=== PATIENT | female | born 1975 | race Caucasian/White ===

== ENCOUNTER 2016-08-10 14:01 | Observation (INO) | payer SELFPAY ==
[2016-08-10] MEDS ORDERED: ZOFRAN INJ 4 MG VIAL 16 MG, ATIVAN INJ 2 MG VIAL 1 MG, DECADRON INJ 10 MG in NS 50 ML I... IV PRN (15:17)
[2016-08-10] MEDS ORDERED: TORADOL 15 MG VIAL IVP PRN (15:17)
[2016-08-10 15:38] VITALS: BMI 27.6
[2016-08-10 15:42] LABS: BASOPHILS % (AUTO) 0.2 % (0.2-1.0); EOSINOPHILS # (AUTO) 0.1 x10^3/uL (0.0-0.2); EOSINOPHILS % (AUTO) 0.8 % (0.9-2.9); HEMATOCRIT 35.1 % (36.0-47.0); HEMOGLOBIN 11.6 g/dL (12.0-16.0); LYMPHOCYTES # (AUTO) 2.6 X10^3/uL (1.3-2.9); LYMPHOCYTES % (AUTO) 28.7 % (21.0-51.0); MEAN CORPUSCULAR VOLUME 84.7 fL (80.0-100.0); MEAN PLATELET VOLUME 8.7 fL (7.4-11.0); MONOCYTES # (AUTO) 0.7 x10^3/uL (0.3-0.8); MONOCYTES % (AUTO) 7.9 % (0.0-13.0); NEUTROPHILS # (AUTO) 5.7 x10^3/uL (2.2-4.8); NEUTROPHILS % (AUTO) 62.4 % (42.0-75.0); PLATELET COUNT 237 X10^3/uL (150.0-450.0); RED BLOOD COUNT 4.15 X10^6/uL (3.5-5.4); RED CELL DISTRIBUTION WIDTH 13.2 % (11.6-16.5); WHITE BLOOD COUNT 9.2 X10^3/uL (3.6-10.0)
[2016-08-10 16:04] LABS: ALANINE AMINOTRANSFERASE 23 Units/L (12-78); ALBUMIN 3.1 g/dL (3.4-5.0); ALKALINE PHOSPHATASE 95 Units/L (46-116); AMYLASE 46 Units/L (25-115); ASPARTATE AMINO TRANSFERASE 14 Units/L (15-37); BLOOD UREA NITROGEN 11 mg/dL (7-18); CALCIUM 8.8 mg/dL (8.5-10.1); CARBON DIOXIDE 26.4 mmol/L (21-32); CHLORIDE 106 mmol/L (98-107); COR CA(FOR HYPOALB) 9.5 mg/dL (8.5-10.1); CREATININE 0.78 mg/dL (0.55-1.02); GLUCOSE 98 mg/dL (65-99); SODIUM 141 mmol/L (136-145); TOTAL PROTEIN 7.2 g/dL (6.4-8.2); eGFR BLACK RACES > 60 (>60); eGFR NON BLACK RACES > 60 (>60)
[2016-08-10] MEDS: NS 1000 ML 1,000 ML IV SCH (16:18)
--- NOTE | 2016-08-10 17:30 | DR.H&P ---
H&P - History & Physical for Day of: H&P Date: 08/10/16 - Chief Complaint Chief Complaint: RIGHT LOWER ABDOMINAL PAIN - Allergies Allergies/Adverse Reactions: Allergies Allergy/AdvReac Type Severity Reaction Status Date / Time No Known Drug Allergy Allergy Verified 08/10/16 15:10 - History of Present Illness History of Present Illness: PT IS 40 [address] ADMITTED FROM DR CHUNG OFFICE AFTER PRESENTING WITH CO RIGHT LOWER ABDOMINAL PAIN RADIATES TO [facility]. PT WAS SEEN IN ER AND HAD CT, TOLD SHE HAD KIDNEY STONE AND POSSIBLE APPENDECTOMY, PT ADVISED TO FOLLOW UP WITH PCP TODAY IF NOT IMPROVED. PT STATES SHE CANNOT GET RELIEF FROM PAIN, UNABLE TO EAT. FEELS FEVER AND WEAK. PLAN TO ADMIT FOR CT ABD PELVIS R/O APPENDICITIS. PAIN CONTROL AND IV ATBX THERAPY. WILL OBTAIN ADMISSION LABS AND START ON ZOSYN IV. - Past Medical History Past Medical History: Anxiety, Hyperthyroidism - Past Surgical History Surgical History: WELLNESS SPECIALIST Surgery - Family History Family Medical History: Diabetes Mellitus, Hypertension - Social History Does patient currently use any type of tobacco product: No Have you used tobacco products in the last 12 months: No Type of Tobacco Use: None Does any household member use tobacco: No Alcohol Use: None Drug Use: None - Medications Home Medications: Chlordiazepoxide HCl [LIBRIUM CAP 10 MG *] 10 mg PO TID PRN 08/10/16 [History Confirmed 08/10/16] Fluoxetine HCl [FLUOXETINE 10 MG *] 10 mg PO BID 08/10/16 [History Confirmed ] Methimazole [Tapazole] 10 mg PO BID 08/10/16 [History Confirmed 08/10/16] - Review of Systems Constitutional: Fever, Weakness Eyes: No Symptoms Reported ENT: No Symptoms Reported Respiratory: No Symptoms Reported Cardiovascular: No Symptoms Reported Gastrointestinal: Nausea, Vomiting, Abdominal Pain Genitourinary: No Symptoms Reported Musculoskeletal: Back Pain Skin: No Symptoms Reported Neurological: No Symptoms Reported - Physical Exam Vital Signs: Temperature 98.3 F Pulse Rate [Left Brachial] 101 Respiratory Rate 18 Blood Pressure [Right Arm] 114/66 Blood Pressure [Left Arm] 114/66 O2 Sat by Pulse Oximetry 96 Oriented: Normal Eyes: Normal Ear: Normal Nose: Normal Throat: Normal Respiratory: Clear Throughout Cardiovascular: Normal : Normal Auscultation: Bowel Sounds: Normal Tenderness: RLQ Skin: Normal Musculoskeletal: Normal Psychiatric: Normal, Anxiety Affect: Anxious Speech Pattern: Clear, Appropriate - Assessment/Plan (1) Abdominal pain, acute, right lower quadrant Status: Acute Plan: ADMIT. ADMISSION LABS, CBC CMP UA, AMYLASE AND LIPASE. IV ZOSYN, IV HYDRATION PAIN AND NAUSEA CONTROL (2) Renal colic Status: Acute (3) Nausea & vomiting Qualifiers: Vomiting type: V Vomiting Intractability: V Status: Acute (4) Anxiety Status: Acute
[2016-08-10] MEDS ORDERED: LIBRIUM PO PRN (17:32)
[2016-08-10 17:37] LABS: BILIRUBIN,URINE NEGATIVE (NEGATIVE); BLOOD/HEMOGLOBIN,URINE 2+ (NEGATIVE); GLUCOSE, URINE 1+ (NEGATIVE); KETONES,URINE NEGATIVE (NEGATIVE); LEUKOCYTE ESTERASE ,URINE NEGATIVE (NEGATIVE); NITRITES,URINE NEGATIVE (NEGATIVE); PH,URINE 6.5 (5.0 - 8.0); PROTEIN,URINE NEGATIVE (NEGATIVE); UROBILINOGEN,URINE 1+ (NORMAL)
[2016-08-10 17:48] LABS: APPEARANCE,URINE CLEAR (CLEAR); COLOR,URINE YELLOW (YELLOW); RBC,URINE 0-2 /HPF (NEGATIVE)
[2016-08-10 17:49] LABS: BACTERIA,URINE TRACE /HPF (NEGATIVE); MUCUS,URINE FEW /HPF (NEGATIVE); SQUAMOUS EPITHELIAL CELL,UR NUMEROUS /HPF (NEGATIVE)
[2016-08-10] MEDS ORDERED: NS 100 ML IV 100 ML IV ONE (18:34)
--- NOTE | 2016-08-10 19:23 | CT ---
CT abdomen and pelvis with contrast Indication: Right lower quadrant pain and fever. Technique: Helical images through the abdomen and pelvis after IV contrast. Oral contrast also prese nt. Findings: Review of bone windows shows no osseous abnormality. Limited images through lower chest sh ow no acute abnormality. Abdomen: Scattered hypodensities in the liver are compatible with cysts. The spleen, gallbladder, pa ncreas, adrenal glands, stomach and small bowel are normal. The appendix is normal. No acute colonic abnormality seen. Vasculature is normal. The kidneys are relatively normal without hydroureteroneph rosis. Few right renal cyst noted. Nonobstructing right interpolar 7 mm stone suspected. Contrast enters the colon without obstruction. No acute colonic abnormality seen. Pelvis: Urinary bladder and rectum are normal. Uterus and adnexa show no acute abnormality. Trace fr ee fluid seen in the pelvis. Impression: 1. No acute abnormality to explain the patient's pain. Normal appendix. 2. Nonobstructing right interpolar renal stone. 3. Liver and right renal cysts. 4. Small free fluid in the pelvis, likely physiologic. Correlate clinically for pelvic source of pat ient's pain. Reported By:
[2016-08-10] MEDS ORDERED: ZOSYN VIAL 3.375 GM IV ONE (19:49)
[2016-08-10] MEDS ORDERED: TAPAZOLE ONE (19:50)
[2016-08-10] MEDS ORDERED: NS 100 ML IV + SPIKE MINIBAG* 100 ML IV ONE (19:50)
[2016-08-10] MEDS: PROzac PO SCH (20:05)
[2016-08-10] MEDS: TAPAZOLE PO SCH (20:05)
[2016-08-10] MEDS ORDERED: NS 250 ML IV 250 ML IV ONE (20:16)
[2016-08-10] MEDS ORDERED: MILK OF MAGNESIA PO SCH (21:00)
[2016-08-10] MEDS ORDERED: COLACE CAP 100 MG PO SCH (21:00)
[2016-08-10] MEDS: ZOSYN VIAL 3.375 GM IV SCH (21:12)
[2016-08-10] MEDS: TYLENOL 325 MG TAB PO PRN (21:37)
[2016-08-11] MEDS: NS 1000 ML 1,000 ML IV SCH ×2 (01:52→08:06)
[2016-08-11] MEDS ORDERED: NS 100 ML IV + SPIKE MINIBAG* 100 ML IV ONE (05:34)
[2016-08-11] MEDS: ZOSYN VIAL 3.375 GM IV SCH (05:53)
[2016-08-11 06:24] LABS: BASOPHILS % (AUTO) 0.3 % (0.2-1.0); EOSINOPHILS # (AUTO) 0.1 x10^3/uL (0.0-0.2); EOSINOPHILS % (AUTO) 1.7 % (0.9-2.9); HEMATOCRIT 33.8 % (36.0-47.0); HEMOGLOBIN 11.3 g/dL (12.0-16.0); LYMPHOCYTES # (AUTO) 2.8 X10^3/uL (1.3-2.9); LYMPHOCYTES % (AUTO) 34.6 % (21.0-51.0); MEAN CORPUSCULAR HEMOGLOBIN 28.5 pg (27.0-34.0); MEAN CORPUSCULAR HGB CONC 33.3 g/dL (33.0-35.0); MEAN CORPUSCULAR VOLUME 85.5 fL (80.0-100.0); MEAN PLATELET VOLUME 9.4 fL (7.4-11.0); MONOCYTES # (AUTO) 0.7 x10^3/uL (0.3-0.8); MONOCYTES % (AUTO) 8.5 % (0.0-13.0); NEUTROPHILS # (AUTO) 4.5 x10^3/uL (2.2-4.8); NEUTROPHILS % (AUTO) 54.9 % (42.0-75.0); PLATELET COUNT 233 X10^3/uL (150.0-450.0); RED BLOOD COUNT 3.96 X10^6/uL (3.5-5.4); RED CELL DISTRIBUTION WIDTH 13.2 % (11.6-16.5); WHITE BLOOD COUNT 8.2 X10^3/uL (3.6-10.0)
[2016-08-11 06:39] LABS: ALANINE AMINOTRANSFERASE 22 Units/L (12-78); ALBUMIN 2.9 g/dL (3.4-5.0); ALKALINE PHOSPHATASE 85 Units/L (46-116); ASPARTATE AMINO TRANSFERASE 14 Units/L (15-37); BLOOD UREA NITROGEN 9 mg/dL (7-18); CALCIUM 8.5 mg/dL (8.5-10.1); CARBON DIOXIDE 24.7 mmol/L (21-32); CHLORIDE 106 mmol/L (98-107); COR CA(FOR HYPOALB) 9.4 mg/dL (8.5-10.1); CREATININE 0.84 mg/dL (0.55-1.02); GLUCOSE 86 mg/dL (65-99); SODIUM 141 mmol/L (136-145); TOTAL PROTEIN 6.9 g/dL (6.4-8.2); eGFR BLACK RACES > 60 (>60); eGFR NON BLACK RACES > 60 (>60)
[2016-08-11] MEDS ORDERED: TAPAZOLE ONE (07:08)
[2016-08-11] MEDS: PROzac PO SCH (08:06)
[2016-08-11] MEDS: TAPAZOLE PO SCH (08:08)
[2016-08-11] MEDS: TYLENOL 325 MG TAB PO PRN (08:08)
[2016-08-11 08:21] VITALS: BP 96/60
[2016-08-11] MEDS ORDERED: NORCO 10/325 TAB PO ONE (08:25)
[2016-08-11] MEDS ORDERED: MOTRIN TAB 800 MG PO PRN (08:25)
--- NOTE | 2016-08-11 12:55 | PCM.DCPLAN ---
Discharge Summary - Admission Date Date of Admission: 08/10/16 - Discharge Date Discharge Date: 08/11/16 - Admission Diagnoses (1) Abdominal pain, acute, right lower quadrant Status: Acute (2) Renal colic Status: Acute (3) Nausea & vomiting Status: Acute (4) Anxiety Status: Acute - Discharge Diagnoses Discharge Diagnosis: same as admission - Discharge Medications Discharge Medications: Chlordiazepoxide HCl [LIBRIUM CAP 10 MG *] 10 mg PO TID PRN 08/10/16 [History] Methimazole [Tapazole] 10 mg PO BID 08/10/16 [History] Fluoxetine HCl [Prozac cap 40 mg] 20 mg PO BID #60 cap 08/11/16 [Rx] Ibuprofen [MOTRIN TAB 800 MG *] 800 mg PO Q8H PRN #90 tab 08/11/16 [Rx] - Hospital Course Vital Signs: Temperature 97.9 F Pulse Rate [Left Brachial] 88 Respiratory Rate 17 Blood Pressure [Right Arm] 96/60 Blood Pressure [Left Arm] 87/52 O2 Sat by Pulse Oximetry 96 Latest Lab Results: Laboratory Last Values WBC 8.2 X10^3/uL (3.6-10.0) 08/11/16 03:11 RBC 3.96 X10^6/uL (3.5-5.4) 08/11/16 03:11 Hgb 11.3 g/dL (12.0-16.0) L 08/11/16 03:11 Hct 33.8 % (36.0-47.0) L 08/11/16 03:11 MCV 85.5 fL (80.0-100.0) 08/11/16 03:11 MCH 28.5 pg (27.0-34.0) 08/11/16 03:11 MCHC 33.3 g/dL (33.0-35.0) 08/11/16 03:11 RDW 13.2 % (11.6-16.5) 08/11/16 03:11 Plt Count 233 X10^3/uL (150.0-450.0) 08/11/16 03:11 MPV 9.4 fL (7.4-11.0) 08/11/16 03:11 Neut % 54.9 % (42.0-75.0) 08/11/16 03:11 Lymph % 34.6 % (21.0-51.0) 08/11/16 03:11 Kay % 8.5 % (0.0-13.0) 08/11/16 03:11 Eos % 1.7 % (0.9-2.9) 08/11/16 03:11 Baso % 0.3 % (0.2-1.0) 08/11/16 03:11 Neut # 4.5 x10^3/uL (2.2-4.8) 08/11/16 03:11 Lymph # 2.8 X10^3/uL (1.3-2.9) 08/11/16 03:11 Kay # 0.7 x10^3/uL (0.3-0.8) 08/11/16 03:11 Eos # 0.1 x10^3/uL (0.0-0.2) 08/11/16 03:11 Baso # 0.0 X10^3/uL (0.0-0.1) 08/11/16 03:11 Absolute Nucleated RBC 0.0 /100WBC 08/11/16 03:11 Sodium 141 mmol/L (136-145) 08/11/16 03:11 Corrected Sodium TNP 08/11/16 03:11 Potassium 3.5 mmol/L (3.5-5.1) 08/11/16 03:11 Chloride 106 mmol/L (98-107) 08/11/16 03:11 Carbon Dioxide 24.7 mmol/L (21-32) 08/11/16 03:11 BUN 9 mg/dL (7-18) 08/11/16 03:11 Creatinine 0.84 mg/dL (0.55-1.02) 08/11/16 03:11 Est GFR (MDRD) Af Amer > 60 (>60) 08/11/16 03:11 Est GFR (MDRD) Non-Af > 60 (>60) 08/11/16 03:11 Glucose 86 mg/dL (65-99) 08/11/16 03:11 Calcium 8.5 mg/dL (8.5-10.1) 08/11/16 03:11 Corrected Calcium 9.4 mg/dL (8.5-10.1) 08/11/16 03:11 Total Bilirubin 0.40 mg/dL (0.2-1.0) 08/11/16 03:11 AST 14 Units/L (15-37) L 08/11/16 03:11 ALT 22 Units/L (12-78) 08/11/16 03:11 Alkaline Phosphatase 85 Units/L (46-116) 08/11/16 03:11 Total Protein 6.9 g/dL (6.4-8.2) 08/11/16 03:11 Albumin 2.9 g/dL (3.4-5.0) L 08/11/16 03:11 Globulin 4.0 g/dL (2.5-4.5) 08/11/16 03:11 Albumin/Globulin Ratio 0.7 Ratio (1.1-2.1) L 08/11/16 03:11 Amylase 46 Units/L (25-115) 08/10/16 15:29 Lipase 72 Units/L (73-393) L 08/10/16 15:29 Specimen Type Clean catch urine 08/10/16 17:13 Urine Color Yellow (YELLOW) 08/10/16 17:13 Urine Appearance Clear (CLEAR) 08/10/16 17:13 Urine pH 6.5 (5.0 - 8.0) 08/10/16 17:13 Ur Specific [place] 1.015 (1.000-1.030) 08/10/16 17:13 Urine Protein Negative (NEGATIVE) 08/10/16 17:13 Urine Glucose (UA) 1+ (NEGATIVE) 08/10/16 17:13 Urine Ketones Negative (NEGATIVE) 08/10/16 17:13 Urine Occult Blood 2+ (NEGATIVE) 08/10/16 17:13 Urine Nitrite Negative (NEGATIVE) 08/10/16 17:13 Urine Bilirubin Negative (NEGATIVE) 08/10/16 17:13 Urine Urobilinogen 1+ (NORMAL) 08/10/16 17:13 Ur Leukocyte Esterase Negative (NEGATIVE) 08/10/16 17:13 Urine RBC 0-2 /HPF (NEGATIVE) 08/10/16 17:13 Urine WBC None seen /HPF (NEGATIVE) 08/10/16 17:13 Ur Squamous Epith Cells Numerous /HPF (NEGATIVE) 08/10/16 17:13 Urine Bacteria Trace /HPF (NEGATIVE) 08/10/16 17:13 Urine Mucus Few /HPF (NEGATIVE) 08/10/16 17:13 Ur Culture Indicated? No/not indicated 08/10/16 17:13 Stool Description Brown,formed,200g 08/10/16 17:13 Stl Occult Blood (IFOB) Negative (NEGATIVE) 08/10/16 17:13 Hospital Course: patient is a 40-year-old white female who was a direct admit from Dr. Alexandre' s office after presenting with complaints of right lower quadrant pain. Patient was seen earlier in the week in the emergency room at [facility] in [facility] and was diagnosed with renal colic. Patient was also informed she could have early appendicitis and was instructed to follow up for primary care in 24 hours if pain continued or persistent. Patient states pain is right lower quadrant and radiates around to low back. Patient states she has been able to eat due to pain. Patient denies any vomiting or diarrhea. Patient was admitted to rule out acute appendicitis patient had a CT scan of her abdomen and pelvis with IV contrast which was negative for acute appendicitis. Patient had fluid in the pelvic cavity and has a history of ovarian CS. Patient CBC and CMP were stable on admission. Patient felt much improved this a.m. after hydration. Patient did receive IV Zosyn while inpatient. Patient instructed to increase by mouth fluids and take ibuprofen 800 every 8 hours and follow up with her [facility]ICE [facility]IDENT [facility] in one week. Patient verbalized understanding. Patient felt much improved and was ready to go home. Patient was discharged home by private vehicle and was improved and stable on discharge. - Discharge Plan Disposition: 01 HOME, SELF-CARE Condition: Stable Prescriptions: Fluoxetine HCl [Prozac cap 40 mg] 20 mg PO BID #60 cap Ibuprofen [MOTRIN TAB 800 MG *] 800 mg PO Q8H PRN #90 tab PRN Reason: Pain/Inflammation - Follow ups/Referrals Follow ups/Referrals: DAVID SERNA [Primary Care Provider] - 08/18/16 2:15 pm Ivan Rico [STAFF PHYSICIAN] - 08/12/16 2:15 pm - Instructions Instructions: Depression, Adult, Renal Colic, [id number], Ibuprofen tablets and capsules, Kidney Stones, [id number], Nausea and Vomiting, Adult, Easy-to- Read, Abdominal Pain, Adult, [id number], Fluoxetine capsules or tablets (PMDD indication) Additional Instructions: follow up with ob/gyb motrin 800mg po q 8 hrs increase po fluids rest, resume home meds Forms: Patient Portal
== END 2016-08-11 10:40 | disposition home or self-care (01) ==
LOC: MED/SURG 14:01 → UNDOADMOB 14:01 → MED/SURG 14:43
PROVIDERS: ADMIT Internal Medicine; ATTEND Internal Medicine
DX: R10.31 Right lower quadrant pain (principal); R11.2 Nausea with vomiting, unspecified; F41.8 Other specified anxiety disorders; N23 Unspecified renal colic; N20.0 Calculus of kidney; N28.1 Cyst of kidney, acquired
CPT/HCPCS: 36415; 74177; 80053; 81001; 82150; 82270; 83690; 85025; A4222; G0378; J2543

== ENCOUNTER → 2017-06-13 | Outpatient (CLI) | payer OTHER ==
--- NOTE | 2017-06-14 06:20 | RAD ---
HISTORY: Right upper quadrant pain Study: KUB Comparison: None Findings: Abdominal gas pattern is unremarkable. There is no evidence for bowel obstruction, abnormal masses or abnormal calcifications. The regional skeleton is intact. IMPRESSION: Unremarkable KUB Reported By:
--- NOTE | 2017-06-14 06:22 | RAD ---
HISTORY: Right side pain Study: T spine AP, lateral, swimmer's Comparison: None Findings: The alignment is normal. The vertebral bodies are of average height. The disc spaces are preserved. T he pedicles are intact. The paraspinous soft tissues are normal. IMPRESSION: No significant abnormality identified Reported By:
--- NOTE | 2017-06-14 06:23 | RAD ---
HISTORY: Right side back pain Study: Lumbar spine AP, lateral, spot Comparison: None Findings: The alignment is normal. The vertebral bodies are of average height. The disc spaces are preserved. T he pedicles are intact. The SI joints are normal. The facet joints are normal. IMPRESSION: No significant abnormality identified Reported By:
== END ==
LOC: RAD 17:30
PROVIDERS: ATTEND Internal Medicine
DX: M54.6 Pain in thoracic spine (principal); M54.5 Low back pain; R10.84 Generalized abdominal pain
CPT/HCPCS: 72072; 72100; 74018

== ENCOUNTER 2017-09-15 17:16 | Observation (INO) ==
[2017-09-15] MEDS ORDERED: PROTONIX INJ 40 MG VIAL IVP ONE (17:49)
--- NOTE | 2017-09-15 18:16 | DR.H&P ---
H&P - History & Physical for Day of: H&P Date: 09/15/17 - Chief Complaint Chief Complaint: RIGHT SIDE ABDOMINAL PAIN, NAUSEA, VOMITING. "CANNOT EAT" - History of Present Illness History of Present Illness: 42 WF DIRECT ADMIT FROM DR SANTOS OFFICE WITH CO RIGHT SIDE ABDOMINAL PAIN WITH N/V FOOD INTOLERANCE. PT WAS SEEN IN ER 7/ DX WITH GALLSTONES. PT HAS PMH OF HYPERTHYROIDISM, JAMAL. PT GIVEN TORADOL 60MGIM IN OFFICE FOR ACUTE PAIN WITHOUT RELIEF. PT HAD BEEN TAKING PPI'S PAIN AND NAUSEA MEDS FROM ER WITHOUT IMPROVEMENT. - Past Medical History Past Medical History: Anxiety, GERD, Hyperthyroidism - Past Surgical History Surgical History: PROCUREMENT BUYER Surgery - Family History Family Medical History: Diabetes Mellitus, Hypertension - Social History Does patient currently use any type of tobacco product: No Have you used tobacco products in the last 12 months: No Type of Tobacco Use: None Does any household member use tobacco: No Alcohol Use: None Drug Use: None - Medications Home Medications: No Known Drug Allergies Allergy (Verified 02/10/17 19:07) - Review of Systems Constitutional: Fever Eyes: No Symptoms Reported ENT: No Symptoms Reported Respiratory: No Symptoms Reported Cardiovascular: Palpitations Gastrointestinal: Nausea, Vomiting, Abdominal Pain, Other (GAS BLOATING, FOOD INTOLERANCE) Genitourinary: No Symptoms Reported Musculoskeletal: Back Pain (RIGHT SIDE PAIN) Skin: No Symptoms Reported Neurological: No Symptoms Reported - Physical Exam Vital Signs: Blood Pressure [Right Arm] 96/60 Blood Pressure [Left Arm] 115/66 Blood Pressure 115/66 Oriented: Normal Eyes: Normal Ear: Normal Nose: Normal Throat: Normal Cardiovascular: Normal : Normal Auscultation: Bowel Sounds: Increased Palpation: Other (DISTENDED) Tenderness: RUQ, RLQ, Epigastric Skin: Normal Musculoskeletal: Right, Back:Thoracic Psychiatric: Anxiety Mood Description: Anxious Affect: Anxious Speech Pattern: Clear, Appropriate - Assessment/Plan (1) Abdominal pain, acute, right upper quadrant Status: Acute Plan: ADMIT, KUB, PROTONIC. CBC CMP UA, AMYLASE LIPASE. PAIN CONTROL, NAUSEA CONTROL. AM LABS, CONSULT DR HOWELL, NPO AFTER MIDNIGHT (2) Nausea & vomiting Status: Acute (3) Cholelithiasis Qualifiers: Cholelithiasis location: gallbladder Cholecystitis presence: without cholecystitis Biliary obstruction: without biliary obstruction Qualified Code(s): K80.20 - Calculus of gallbladder without cholecystitis without obstruction Status: Acute (4) Hyperthyroidism Status: Acute Plan: CONTINUE METHIMAZOLE - Allergies Allergies/Adverse Reactions: Allergies Allergy/AdvReac Type Severity Reaction Status Date / Time No Known Drug Allergies Allergy Verified 02/10/17 19:07
[2017-09-15 18:18] VITALS: BMI 32.3
[2017-09-15] MEDS ORDERED: LIBRIUM PO PRN (18:20)
[2017-09-15] MEDS: NS 1000 ML 1,000 ML IV SCH (18:24)
[2017-09-15 18:27] LABS: BASOPHILS % (AUTO) 0.7 % (0.2-1.0); EOSINOPHILS # (AUTO) 0.1 x10^3/uL (0.0-0.2); EOSINOPHILS % (AUTO) 0.8 % (0.9-2.9); HEMATOCRIT 35.2 % (36.0-47.0); HEMOGLOBIN 11.4 g/dL (12.0-16.0); LYMPHOCYTES # (AUTO) 2.9 X10^3/uL (1.3-2.9); LYMPHOCYTES % (AUTO) 39.3 % (21.0-51.0); MEAN CORPUSCULAR HEMOGLOBIN 25.8 pg (27.0-34.0); MEAN CORPUSCULAR HGB CONC 32.4 g/dL (33.0-35.0); MEAN CORPUSCULAR VOLUME 79.8 fL (80.0-100.0); MEAN PLATELET VOLUME 9.3 fL (7.4-11.0); MONOCYTES # (AUTO) 0.9 x10^3/uL (0.3-0.8); MONOCYTES % (AUTO) 12.1 % (0.0-13.0); NEUTROPHILS # (AUTO) 3.5 x10^3/uL (2.2-4.8); NEUTROPHILS % (AUTO) 47.1 % (42.0-75.0); PLATELET COUNT 300 X10^3/uL (150.0-450.0); RED BLOOD COUNT 4.42 X10^6/uL (3.5-5.4); RED CELL DISTRIBUTION WIDTH 15.9 % (11.6-16.5); WHITE BLOOD COUNT 7.4 X10^3/uL (3.6-10.0)
[2017-09-15 18:46] LABS: TSH (3RD GENERATION) 1.8 uIU/mL (0.358-3.74)
[2017-09-15 18:51] LABS: PLATELET MORPHOLOGY COMMENT NORMAL (NORMAL)
[2017-09-15 18:52] LABS: ALANINE AMINOTRANSFERASE 24 Units/L (12-78); ALBUMIN 3.7 g/dL (3.4-5.0); ALKALINE PHOSPHATASE 110 Units/L (46-116); ASPARTATE AMINO TRANSFERASE 19 Units/L (15-37); BLOOD UREA NITROGEN 12 mg/dL (7-18); CALCIUM 8.5 mg/dL (8.5-10.1); CARBON DIOXIDE 23.3 mmol/L (21-32); CHLORIDE 104 mmol/L (98-107); CREATININE 0.86 mg/dL (0.55-1.02); FREE T4 (FREE THYROXINE) 0.75 ng/dL (0.76-1.46); SODIUM 138 mmol/L (136-145); TOTAL PROTEIN 8.2 g/dL (6.4-8.2); eGFR NON BLACK RACES > 60 (>60)
--- NOTE | 2017-09-15 19:16 | RAD ---
HISTORY: Abdominal pain, distention Study: KUB Comparison: None Findings: The abdominal gas pattern is nonspecific and nonobstructive. No abnormal masses or abnormal calcifica tions are identified. There is a moderately large amount of stool present throughout the colon. IMPRESSION: No acute findings Constipation Reported By:
[2017-09-15] MEDS ORDERED: TAPAZOLE ONE (19:26)
[2017-09-15] MEDS: TAPAZOLE PO SCH (20:37)
[2017-09-15] MEDS ORDERED: PROzac PO SCH (21:00)
[2017-09-15 21:38] LABS: BILIRUBIN,URINE NEGATIVE (NEGATIVE); BLOOD/HEMOGLOBIN,URINE NEGATIVE (NEGATIVE); GLUCOSE, URINE NEGATIVE (NEGATIVE); KETONES,URINE NEGATIVE (NEGATIVE); LEUKOCYTE ESTERASE ,URINE NEGATIVE (NEGATIVE); NITRITES,URINE NEGATIVE (NEGATIVE); PROTEIN,URINE NEGATIVE (NEGATIVE); UROBILINOGEN,URINE NORMAL (NORMAL)
[2017-09-15 21:44] LABS: APPEARANCE,URINE CLEAR (CLEAR); COLOR,URINE YELLOW (YELLOW)
[2017-09-16 05:42] LABS: BASOPHILS % (AUTO) 0.2 % (0.2-1.0); EOSINOPHILS # (AUTO) 0.1 x10^3/uL (0.0-0.2); EOSINOPHILS % (AUTO) 1.1 % (0.9-2.9); HEMATOCRIT 32.1 % (36.0-47.0); HEMOGLOBIN 10.4 g/dL (12.0-16.0); LYMPHOCYTES # (AUTO) 2.3 X10^3/uL (1.3-2.9); LYMPHOCYTES % (AUTO) 35.1 % (21.0-51.0); MEAN CORPUSCULAR HEMOGLOBIN 25.9 pg (27.0-34.0); MEAN CORPUSCULAR HGB CONC 32.5 g/dL (33.0-35.0); MEAN CORPUSCULAR VOLUME 79.6 fL (80.0-100.0); MEAN PLATELET VOLUME 9.1 fL (7.4-11.0); MONOCYTES # (AUTO) 0.6 x10^3/uL (0.3-0.8); MONOCYTES % (AUTO) 9.3 % (0.0-13.0); NEUTROPHILS # (AUTO) 3.6 x10^3/uL (2.2-4.8); NEUTROPHILS % (AUTO) 54.3 % (42.0-75.0); PLATELET COUNT 243 X10^3/uL (150.0-450.0); RED BLOOD COUNT 4.03 X10^6/uL (3.5-5.4); RED CELL DISTRIBUTION WIDTH 15.9 % (11.6-16.5); WHITE BLOOD COUNT 6.6 X10^3/uL (3.6-10.0)
[2017-09-16 05:55] LABS: ALANINE AMINOTRANSFERASE 23 Units/L (12-78); ALKALINE PHOSPHATASE 90 Units/L (46-116); ASPARTATE AMINO TRANSFERASE 20 Units/L (15-37); BLOOD UREA NITROGEN 11 mg/dL (7-18); CALCIUM 8.5 mg/dL (8.5-10.1); CARBON DIOXIDE 26.2 mmol/L (21-32); CHLORIDE 107 mmol/L (98-107); COR CA(FOR HYPOALB) 9.3 mg/dL (8.5-10.1); CREATININE 0.82 mg/dL (0.55-1.02); SODIUM 139 mmol/L (136-145); TOTAL PROTEIN 7.2 g/dL (6.4-8.2); eGFR NON BLACK RACES > 60 (>60)
[2017-09-16 06:04] LABS: PLATELET MORPHOLOGY COMMENT NORMAL (NORMAL)
[2017-09-16] MEDS: NS 1000 ML 1,000 ML IV SCH (06:11)
[2017-09-16] MEDS ORDERED: TAPAZOLE ONE ×2 (08:07→09:03)
[2017-09-16] MEDS ORDERED: DULCOLAX SUPPOSITORY 10 MG RECTAL ONE (08:14)
[2017-09-16] MEDS ORDERED: PROzac PO SCH ×2 (09:00)
[2017-09-16] MEDS: TAPAZOLE PO SCH (09:01)
[2017-09-16 13:51] VITALS: BP 101/50
== END 2017-09-16 13:20 | disposition home or self-care (01) ==
LOC: MED/SURG
PROVIDERS: ADMIT Internal Medicine; ATTEND Internal Medicine
DX: K59.00 Constipation, unspecified; R10.11 Right upper quadrant pain; N83.201 Unspecified ovarian cyst, right side; N83.202 Unspecified ovarian cyst, left side; N20.0 Calculus of kidney; K80.00 Calculus of gallbladder with acute cholecystitis without obstruction; K21.9 Gastro-esophageal reflux disease without esophagitis; E05.90 Thyrotoxicosis, unspecified without thyrotoxic crisis or storm; N80.9 Endometriosis, unspecified
CPT/HCPCS: 36415; 74000; 74018; 80053; 81003; 82150; 83690; 84439; 84443; 85025; 93005; 93010; A4222; C9113; G0378; J7030

== ENCOUNTER 2018-03-27 13:30 | Inpatient (IN) ==
[2018-03-27] MEDS ORDERED: ZOFRAN INJ 4 MG VIAL IVP PRN (15:18)
[2018-03-27] MEDS ORDERED: SALINE 3% 15 ML NEB TX NEB ONE (15:27)
[2018-03-27 16:07] LABS: FREE T4 (FREE THYROXINE) 1.09 ng/dL (0.76-1.46)
[2018-03-27] MEDS ORDERED: NS 500 ML IV 500 ML IV ONE (16:17)
[2018-03-27] MEDS: PROTONIX INJ 40 MG VIAL IVP SCH (16:30)
[2018-03-27] MEDS: ROCEPHIN VIAL 1 GRAM IVP SCH (16:30)
[2018-03-27] MEDS ORDERED: XOPENEX 1.25 MG/3 ML NEBULE NEB PRN (16:55)
--- NOTE | 2018-03-27 17:17 | RAD ---
PA and lateral chest Indication: Shortness of breath Comparison: 03/23/2018 Findings: The trachea is midline. Lungs are clear. No pleural effusion or pneumothorax. No acute osseous abnormality. Impression: Normal chest x-ray. Reported By:
--- NOTE | 2018-03-27 17:21 | CT ---
CTA chest Indication: Shortness of breath Comparison: None Technique: CT images of the chest were obtained with contrast. Automatic exposure control was utilized. MIP images provided. Findings: Images through the upper abdomen demonstrate cholelithiasis. Probable scattered liver cysts are noted. No acute osseous abnormality. The heart size is normal, without pericardial thickening or pericardial effusion. No pathologically enlarged intrathoracic lymph nodes are identified. The thoracic aorta is grossly normal for technique. Contrast bolus timing is suboptimal, limiting evaluation of the smaller segmental and subsegmental pulmonary arteries. Accounting for this, no pulmonary arterial filling defect can be identified. There is mild infiltrate within the right middle lobe. The remaining lungs are otherwise clear. No pleural effusion or pneumothorax. The major airways are patent. Impression: Right middle lobe pneumonia. No evidence for PTE. Reported By:
[2018-03-27] MEDS: XOPENEX 1.25 MG/3 ML NEBULE NEB SCH (17:28)
[2018-03-27] MEDS: ZITHROMAX INJ 500 MG VIAL 500 MG in D5W 250 ML IV 250 ML IV SCH (17:48)
[2018-03-27 18:09] VITALS: BMI 36.6
[2018-03-27 18:36] LABS: BILIRUBIN,URINE NEGATIVE (NEGATIVE); BLOOD/HEMOGLOBIN,URINE 1+ (NEGATIVE); GLUCOSE, URINE NEGATIVE (NEGATIVE); KETONES,URINE NEGATIVE (NEGATIVE); LEUKOCYTE ESTERASE ,URINE NEGATIVE (NEGATIVE); NITRITES,URINE NEGATIVE (NEGATIVE); PROTEIN,URINE 1+ (NEGATIVE); UROBILINOGEN,URINE NORMAL (NORMAL)
[2018-03-27 18:39] LABS: APPEARANCE,URINE CLEAR (CLEAR); COLOR,URINE YELLOW (YELLOW)
[2018-03-27 18:44] LABS: BACTERIA,URINE TRACE /HPF (NEGATIVE); RBC,URINE 0-2 /HPF (NONE SEEN); SQUAMOUS EPITHELIAL CELL,UR MANY /HPF (NEGATIVE)
[2018-03-27] MEDS: MIRALAX POWDER (1 DOSE 17 G) PO SCH (20:54)
[2018-03-28] MEDS: XOPENEX 1.25 MG/3 ML NEBULE NEB SCH ×4 (00:37→18:26)
[2018-03-28] MEDS ORDERED: TYLENOL 325 MG TAB PO ONE (01:58)
[2018-03-28] MEDS: TYLENOL 325 MG TAB PO PRN ×2 (02:04→15:19)
[2018-03-28 06:06] LABS: BASOPHILS % (AUTO) 0.3 % (0.2-1.0); EOSINOPHILS # (AUTO) 0.1 x10^3/uL (0.0-0.2); EOSINOPHILS % (AUTO) 0.9 % (0.9-2.9); HEMATOCRIT 27.3 % (36.0-47.0); HEMOGLOBIN 8.5 g/dL (12.0-16.0); LYMPHOCYTES # (AUTO) 3.4 X10^3/uL (1.3-2.9); MEAN CORPUSCULAR HGB CONC 31.2 g/dL (33.0-35.0); MEAN CORPUSCULAR VOLUME 76.7 fL (80.0-100.0); MEAN PLATELET VOLUME 8.8 fL (7.4-11.0); MONOCYTES # (AUTO) 0.9 x10^3/uL (0.3-0.8); MONOCYTES % (AUTO) 10.1 % (0.0-13.0); NEUTROPHILS # (AUTO) 4.7 x10^3/uL (2.2-4.8); NEUTROPHILS % (AUTO) 51.7 % (42.0-75.0); PLATELET COUNT 293 X10^3/uL (150.0-450.0); RED BLOOD COUNT 3.56 X10^6/uL (3.5-5.4); RED CELL DISTRIBUTION WIDTH 16.5 % (11.6-16.5); WHITE BLOOD COUNT 9.1 X10^3/uL (3.6-10.0)
[2018-03-28 06:22] LABS: ALANINE AMINOTRANSFERASE 19 Units/L (12-78); ALKALINE PHOSPHATASE 89 Units/L (46-116); ASPARTATE AMINO TRANSFERASE 10 Units/L (15-37); BLOOD UREA NITROGEN 10 mg/dL (7-18); CALCIUM 8.6 mg/dL (8.5-10.1); CARBON DIOXIDE 27.2 mmol/L (21-32); CHLORIDE 104 mmol/L (98-107); COR CA(FOR HYPOALB) 9.4 mg/dL (8.5-10.1); CREATININE 0.79 mg/dL (0.55-1.02); SODIUM 141 mmol/L (136-145); TOTAL PROTEIN 7.2 g/dL (6.4-8.2); eGFR NON BLACK RACES > 60 (>60)
[2018-03-28 06:48] LABS: HYPOCHROMASIA SLIGHT; PLATELET MORPHOLOGY COMMENT NORMAL (NORMAL)
[2018-03-28] MEDS: PROTONIX INJ 40 MG VIAL IVP SCH (08:19)
[2018-03-28] MEDS: ROCEPHIN VIAL 1 GRAM IVP SCH (08:19)
[2018-03-28] MEDS: ZITHROMAX INJ 500 MG VIAL 500 MG in D5W 250 ML IV 250 ML IV SCH (08:19)
--- NOTE | 2018-03-28 13:50 | DR.H&P ---
H&P - History & Physical for Day of: H&P Date: 03/27/18 - Chief Complaint Chief Complaint: SOB, FATIGUE - History of Present Illness History of Present Illness: 42 WF DIRECT ADMIT FROM DR SANTOS OFFICE WITH CO SOB AND WEAKNESS. PT WAS SEEN IN ER LAST WEEK WITH SAME SYMPTOMS AND DX WITH PNEUMONIA. PT WAS STARTED ON DOXYCYCLINE PO BID WITHOUT IMPROVEMENT. PT CO RECENT TACHYCARDIA AND INCREASED SOB ON EXERTION. PT HAS PMH OF HYPERTHYROIDISM S/P THYROID REMOVAL AND JAMAL. PT ADMITTED FOR TREATMENT OF PNEUMONIA, EVALUATION OF SOB - Past Medical History Past Medical History: Anxiety, GERD, Hyperthyroidism - Past Surgical History Surgical History: Thyroidectomy, Other - Family History Family Medical History: Diabetes Mellitus, Hypertension - Social History Does patient currently use any type of tobacco product: No Have you used tobacco products in the last 12 months: No Type of Tobacco Use: Cigarettes How many years tobacco product used: 18 Does any household member use tobacco: No Alcohol Use: None Drug Use: Prescription Drugs - Medications Home Medications: No Known Drug Allergies Allergy (Verified 02/10/17 19:07) CONTINUE taking the following medications chlordiazepoxide HCl 10 mg PO Q8H PRN 03/27/18 [History] fluoxetine 10 mg PO BID 03/27/18 [History] levothyroxine [Synthroid] 100 mcg PO 0700 03/27/18 [History] - Review of Systems Constitutional: Weakness Eyes: No Symptoms Reported ENT: No Symptoms Reported Respiratory: Shortness of Breath Cardiovascular: No Symptoms Reported Gastrointestinal: No Symptoms Reported Genitourinary: No Symptoms Reported Musculoskeletal: No Symptoms Reported Skin: No Symptoms Reported Neurological: Weakness - Physical Exam Vital Signs: Temperature 97.7 F Pulse Rate [Right Brachial] 74 Pulse Rate 91 Respiratory Rate 20 Blood Pressure [Right Arm] 108/56 Blood Pressure [Left Arm] 102/73 Blood Pressure 102/73 O2 Sat by Pulse Oximetry 97 Oriented: Normal Eyes: Normal Ear: Normal Throat: Normal Respiratory: RLL Diminished, LLL Diminished Cardiovascular: Tachycardia : Normal Auscultation: Bowel Sounds: Normal Palpation: Normal Tenderness: Normal Skin: Normal Musculoskeletal: Normal Psychiatric: Normal Speech Pattern: Clear, Appropriate - Assessment/Plan (1) Pneumonia Status: Acute Plan: ADMIT, PNEUMONIA PROTOCOL. BLOOD AND SPUTUM CULTURES, GENTLE IV HYDRATION. RESP THERAPY, PPI THERAPY. EKG ON ADMISSION (2) LAZO (dyspnea on exertion) Status: Acute (3) History of palpitations Status: Acute - Allergies Allergies/Adverse Reactions: Allergies Allergy/AdvReac Type Severity Reaction Status Date / Time No Known Drug Allergies Allergy Verified 02/10/17 19:07
[2018-03-28] MEDS ORDERED: NS 100 ML IV 100 ML with VENOFER 400 MG IV NR ×2 (14:00)
[2018-03-28] MEDS ORDERED: PHARMACY CONSULT - DOSE _____ XX SCH (14:00)
[2018-03-28] MEDS: LIBRIUM PO PRN (14:49)
[2018-03-28] MEDS: SYNTHROID 100 mcg TAB PO SCH ×2 (15:26→18:18)
[2018-03-28 19:53] LABS: CREATINE KINASE 33 Units/L (26-192); CREATINE KINASE MB < 1.0 ng/mL (0-4.0); TROPONIN I < 0.02 ng/mL (0-1.5)
[2018-03-28] MEDS: MIRALAX POWDER (1 DOSE 17 G) PO SCH (21:21)
[2018-03-29] MEDS: XOPENEX 1.25 MG/3 ML NEBULE NEB SCH (01:08)
[2018-03-29] MEDS: TYLENOL 325 MG TAB PO PRN ×3 (03:53→21:33)
--- NOTE | 2018-03-29 05:59 | RAD ---
Chest AP portable Indication: Pneumonia Comparison: 03/27/2018 Findings: There is no pneumothorax or effusion. Heart size is normal Impression: Right middle lobe opacity is improving, without new acute abnormality Reported By:
[2018-03-29 06:27] LABS: BASOPHILS % (AUTO) 0.3 % (0.2-1.0); EOSINOPHILS # (AUTO) 0.1 x10^3/uL (0.0-0.2); EOSINOPHILS % (AUTO) 1.1 % (0.9-2.9); HEMATOCRIT 27.1 % (36.0-47.0); HEMOGLOBIN 8.6 g/dL (12.0-16.0); LYMPHOCYTES # (AUTO) 3.4 X10^3/uL (1.3-2.9); LYMPHOCYTES % (AUTO) 35.1 % (21.0-51.0); MEAN CORPUSCULAR HGB CONC 31.7 g/dL (33.0-35.0); MEAN CORPUSCULAR VOLUME 75.9 fL (80.0-100.0); MEAN PLATELET VOLUME 9.2 fL (7.4-11.0); MONOCYTES # (AUTO) 0.8 x10^3/uL (0.3-0.8); MONOCYTES % (AUTO) 8.6 % (0.0-13.0); NEUTROPHILS # (AUTO) 5.3 x10^3/uL (2.2-4.8); NEUTROPHILS % (AUTO) 54.9 % (42.0-75.0); PLATELET COUNT 281 X10^3/uL (150.0-450.0); RED BLOOD COUNT 3.57 X10^6/uL (3.5-5.4); RED CELL DISTRIBUTION WIDTH 16.5 % (11.6-16.5); WHITE BLOOD COUNT 9.7 X10^3/uL (3.6-10.0)
[2018-03-29 06:33] LABS: ALANINE AMINOTRANSFERASE 16 Units/L (12-78); ALKALINE PHOSPHATASE 87 Units/L (46-116); ASPARTATE AMINO TRANSFERASE 10 Units/L (15-37); BLOOD UREA NITROGEN 10 mg/dL (7-18); CALCIUM 8.7 mg/dL (8.5-10.1); CARBON DIOXIDE 23.1 mmol/L (21-32); CHLORIDE 106 mmol/L (98-107); COR CA(FOR HYPOALB) 9.5 mg/dL (8.5-10.1); CREATININE 0.83 mg/dL (0.55-1.02); SODIUM 140 mmol/L (136-145); TOTAL PROTEIN 7.1 g/dL (6.4-8.2); eGFR NON BLACK RACES > 60 (>60)
[2018-03-29 07:42] LABS: PLATELET MORPHOLOGY COMMENT NORMAL (NORMAL)
[2018-03-29] MEDS: Atrovent NEB TX 0.02% NEB SCH ×4 (08:51→20:07)
[2018-03-29] MEDS: MUCOMYST 20% 200 MG/ML NEB SCH ×2 (08:51→20:07)
[2018-03-29] MEDS: ZITHROMAX INJ 500 MG VIAL 500 MG in D5W 250 ML IV 250 ML IV SCH (09:55)
[2018-03-29] MEDS: ROCEPHIN VIAL 1 GRAM IVP SCH (09:55)
[2018-03-29] MEDS: PROTONIX INJ 40 MG VIAL IVP SCH (09:55)
[2018-03-29] MEDS: SYNTHROID 100 mcg TAB PO SCH (15:22)
[2018-03-29] MEDS: MIRALAX POWDER (1 DOSE 17 G) PO SCH (20:41)
[2018-03-29] MEDS ORDERED: ULTRAM PO PRN (20:53)
[2018-03-29] MEDS: PROzac PO SCH (21:34)
[2018-03-29] MEDS: LIBRIUM PO PRN (21:34)
[2018-03-30 05:31] LABS: BASOPHILS % (AUTO) 0.4 % (0.2-1.0); EOSINOPHILS # (AUTO) 0.1 x10^3/uL (0.0-0.2); EOSINOPHILS % (AUTO) 1.5 % (0.9-2.9); HEMATOCRIT 28.8 % (36.0-47.0); LYMPHOCYTES # (AUTO) 3.8 X10^3/uL (1.3-2.9); LYMPHOCYTES % (AUTO) 38.5 % (21.0-51.0); MEAN CORPUSCULAR HEMOGLOBIN 24.1 pg (27.0-34.0); MEAN CORPUSCULAR HGB CONC 31.3 g/dL (33.0-35.0); MEAN PLATELET VOLUME 8.7 fL (7.4-11.0); MONOCYTES # (AUTO) 0.8 x10^3/uL (0.3-0.8); NEUTROPHILS # (AUTO) 5.1 x10^3/uL (2.2-4.8); NEUTROPHILS % (AUTO) 51.6 % (42.0-75.0); PLATELET COUNT 286 X10^3/uL (150.0-450.0); RED BLOOD COUNT 3.74 X10^6/uL (3.5-5.4); RED CELL DISTRIBUTION WIDTH 16.7 % (11.6-16.5); WHITE BLOOD COUNT 9.9 X10^3/uL (3.6-10.0)
[2018-03-30 05:45] LABS: ALANINE AMINOTRANSFERASE 19 Units/L (12-78); ALKALINE PHOSPHATASE 91 Units/L (46-116); ASPARTATE AMINO TRANSFERASE 9 Units/L (15-37); BLOOD UREA NITROGEN 10 mg/dL (7-18); CALCIUM 8.5 mg/dL (8.5-10.1); CARBON DIOXIDE 24.2 mmol/L (21-32); CHLORIDE 104 mmol/L (98-107); COR CA(FOR HYPOALB) 9.3 mg/dL (8.5-10.1); CREATININE 0.72 mg/dL (0.55-1.02); SODIUM 138 mmol/L (136-145); TOTAL PROTEIN 7.2 g/dL (6.4-8.2); eGFR NON BLACK RACES > 60 (>60)
[2018-03-30 05:56] LABS: HYPOCHROMASIA 1+; PLATELET MORPHOLOGY COMMENT NORMAL (NORMAL)
[2018-03-30 05:57] LABS: MICROCYTOSIS SLIGHT
[2018-03-30] MEDS: SYNTHROID 100 mcg TAB PO SCH (06:00)
[2018-03-30] MEDS: MUCOMYST 20% 200 MG/ML NEB SCH ×2 (09:04→21:23)
[2018-03-30] MEDS: Atrovent NEB TX 0.02% NEB SCH ×4 (09:04→21:24)
[2018-03-30] MEDS: ROCEPHIN VIAL 1 GRAM IVP SCH (09:20)
[2018-03-30] MEDS: PROTONIX INJ 40 MG VIAL IVP SCH (09:21)
[2018-03-30] MEDS: ZITHROMAX INJ 500 MG VIAL 500 MG in D5W 250 ML IV 250 ML IV SCH (09:21)
[2018-03-30] MEDS: PROzac PO SCH ×2 (09:21→20:17)
[2018-03-30] MEDS ORDERED: TORADOL 30 MG VIAL IVP PRN (09:56)
[2018-03-30] MEDS: HEMOCYTE-PLUS PO SCH (18:08)
--- NOTE | 2018-03-30 18:31 | PCM.PROG ---
Progress Note - Progress Note for Day of Date of Exam: 03/30/18 - Subjective Subjective: 42 WF ADMITTED ON 03/28 WITH PNEUMONIA AND SOB. PT HAS BEEN ON PNEUMONIA PROTCOL SINCE ADMISSION, UNABLE TO PRODUCT SPUTUM. PT IS CURRENTLY ON SMART VEST AND ROBITUSSIN WITH JET NEBS QID. PT REPORTS FEELING A LITTLE BETTER THIS AM. PT RECEIVED IRON INFUSION WITH HGB 9 THIS AM, STARTED ON PO IRON THERAPY. PT CO CONSTIPATION, ABD SERIES ORDERED. WILL ADD IV TORADOL FOR PAIN AND KIM. PT HAD LEFT FA SWELLING AND MILD WARMTH AND REDNESS AFTER IV INFILTRATION. WILL CONTINUE WARM MOIST COMPRESS AND LUE ELEVATION - Past Medical Family Social History Past Med/Fam/Surg Hx: No changes since H&P Allergies: Allergies No Known Drug Allergies Allergy (Verified 02/10/17 19:07) - Review of Systems ROS: No change since H&P - Vital Signs and I&O's Vital Signs: Temperature 98.1 F Pulse Rate [Left Brachial] 96 Pulse Rate [Right Brachial] 102 Pulse Rate 112 Respiratory Rate 20 Blood Pressure [Right Arm] 109/59 Blood Pressure [Left Arm] 109/72 Blood Pressure 102/73 O2 Sat by Pulse Oximetry 98 Intake and Output: Intake & Output 03/28/18 03/29/18 03/30/18 03/31/18 11:59 11:59 11:59 11:59 Intake Total 1100 / 1100 870 / 870 1180 / 1180 580 / 580 Balance 1100 / 1100 870 / 870 1180 / 1180 580 / 580 - Physical Exam Oriented: Normal Eyes: Normal Ear: Normal Throat: Normal Respiratory: Diminished Cardiovascular: Tachycardia : Normal Auscultation: Bowel Sounds: Normal Tenderness: Normal Skin: Normal Musculoskeletal: Normal Psychiatric: Normal Speech Pattern: Clear, Appropriate - Laboratory and Diagnostics Result Diagrams: 03/30/18 05:10 03/30/18 05:10 Labs: 03/27/18 15:35 Blood Blood Culture - Preliminary 03/27/18 15:32 Blood Blood Culture - Preliminary Laboratory WBC 9.9 X10^3/uL (3.6-10.0) 03/30/18 05:10 RBC 3.74 X10^6/uL (3.5-5.4) 03/30/18 05:10 Hgb 9.0 g/dL (12.0-16.0) L 03/30/18 05:10 Hct 28.8 % (36.0-47.0) L 03/30/18 05:10 MCV 77.0 fL (80.0-100.0) L 03/30/18 05:10 MCH 24.1 pg (27.0-34.0) L 03/30/18 05:10 MCHC 31.3 g/dL (33.0-35.0) L 03/30/18 05:10 RDW 16.7 % (11.6-16.5) H 03/30/18 05:10 Plt Count 286 X10^3/uL (150.0-450.0) 03/30/18 05:10 Plt Count Comment Adequate (ADEQUATE) 03/30/18 05:10 MPV 8.7 fL (7.4-11.0) 03/30/18 05:10 Neut % (Auto) 51.6 % (42.0-75.0) 03/30/18 05:10 Lymph % (Auto) 38.5 % (21.0-51.0) 03/30/18 05:10 [place] % (Auto) 8.0 % (0.0-13.0) 03/30/18 05:10 Eos % (Auto) 1.5 % (0.9-2.9) 03/30/18 05:10 Baso % (Auto) 0.4 % (0.2-1.0) 03/30/18 05:10 Neut # (Auto) 5.1 x10^3/uL (2.2-4.8) H 03/30/18 05:10 Lymph # (Auto) 3.8 X10^3/uL (1.3-2.9) H 03/30/18 05:10 [place] # (Auto) 0.8 x10^3/uL (0.3-0.8) 03/30/18 05:10 Eos # (Auto) 0.1 x10^3/uL (0.0-0.2) 03/30/18 05:10 Baso # (Auto) 0.0 X10^3/uL (0.0-0.1) 03/30/18 05:10 Absolute Nucleated RBC 0.1 /100WBC 03/30/18 05:10 Plt Morphology Comment Normal (NORMAL) 03/30/18 05:10 RBC Morphology Abnormal (NORMAL) A 03/30/18 05:10 Hypochromasia 1+ A 03/30/18 05:10 Microcytosis Slight A 03/30/18 05:10 D-Dimer < 100 ng/mL (0-400) 03/27/18 15:35 Sodium 138 mmol/L (136-145) 03/30/18 05:10 Corrected Sodium TNP 03/30/18 05:10 Potassium 3.8 mmol/L (3.5-5.1) 03/30/18 05:10 Chloride 104 mmol/L (98-107) 03/30/18 05:10 Carbon Dioxide 24.2 mmol/L (21-32) 03/30/18 05:10 BUN 10 mg/dL (7-18) 03/30/18 05:10 Creatinine 0.72 mg/dL (0.55-1.02) 03/30/18 05:10 Est GFR (MDRD) Af Amer > 60 (>60) 03/30/18 05:10 Est GFR (MDRD) Non-Af > 60 (>60) 03/30/18 05:10 Glucose 98 mg/dL (65-99) 03/30/18 05:10 Calcium 8.5 mg/dL (8.5-10.1) 03/30/18 05:10 Corrected Calcium 9.3 mg/dL (8.5-10.1) 03/30/18 05:10 Iron 11 ug/dL (50-175) L 03/28/18 05:20 Transferrin 213 mg/dL (202-364) 03/28/18 05:20 Ferritin 6 ng/mL (8-252) L 03/28/18 05:20 Total Bilirubin 0.10 mg/dL (0.2-1.0) L 03/30/18 05:10 AST 9 Units/L (15-37) L 03/30/18 05:10 ALT 19 Units/L (12-78) 03/30/18 05:10 Alkaline Phosphatase 91 Units/L (46-116) 03/30/18 05:10 Creatine Kinase 33 Units/L (26-192) 03/28/18 19:24 CK-MB (CK-2) < 1.0 ng/mL (0-4.0) 03/28/18 19:24 CK/CKMB % Calc 3.0 % (<4) 03/28/18 19:24 Troponin I < 0.02 ng/mL (0-1.5) 03/28/18 19:24 Total Protein 7.2 g/dL (6.4-8.2) 03/30/18 05:10 Albumin 3.0 g/dL (3.4-5.0) L 03/30/18 05:10 Globulin 4.2 g/dL (2.5-4.5) 03/30/18 05:10 Albumin/Globulin Ratio 0.7 Ratio (1.1-2.1) L 03/30/18 05:10 Vitamin B12 457 pg/mL (193-986) 03/28/18 05:20 Folate 12.5 ng/mL (>8.6) 03/28/18 05:20 Free T4 1.09 ng/dL (0.76-1.46) 03/27/18 15:35 Free T3 pg/dL 2.8 pg/mL (2.4-4.2) 03/27/18 15:35 Specimen Type Clean catch urine 03/27/18 18:10 Urine Color Yellow (YELLOW) 03/27/18 18:10 Urine Appearance Clear (CLEAR) 03/27/18 18:10 Urine pH 7.0 (5.0 - 8.0) 03/27/18 18:10 Ur Specific [place] 1.005 (1.000-1.030) 03/27/18 18:10 Urine Protein 1+ (NEGATIVE) 03/27/18 18:10 Urine Glucose (UA) Negative (NEGATIVE) 03/27/18 18:10 Urine Ketones Negative (NEGATIVE) 03/27/18 18:10 Urine Occult Blood 1+ (NEGATIVE) 03/27/18 18:10 Urine Nitrite Negative (NEGATIVE) 03/27/18 18:10 Urine Bilirubin Negative (NEGATIVE) 03/27/18 18:10 Urine Urobilinogen Normal (NORMAL) 03/27/18 18:10 Ur Leukocyte Esterase Negative (NEGATIVE) 03/27/18 18:10 Urine RBC 0-2 /HPF (NONE SEEN) 03/27/18 18:10 Urine WBC None seen /HPF (NONE SEEN) 03/27/18 18:10 Ur Squamous Epith Cells Many /HPF (NEGATIVE) 03/27/18 18:10 Urine Bacteria Trace /HPF (NEGATIVE) 03/27/18 18:10 Ur Culture Indicated? No/not indicated 03/27/18 18:10 Stool Description Fob tube 03/29/18 00:41 Stl Occult Blood (IFOB) Negative (NEGATIVE) 03/29/18 00:41 - Plan (1) Pneumonia Status: Acute Plan: PNEUMONIA PROTOCOL. BLOOD CULTURES COLLECTED ON ADMISSION WITHOUT GROWTH AT THIS TIME. GENTLE IV HYDRATION. RESP THERAPY, PPI THERAPY. IRON REPLACEMENT (2) LAZO (dyspnea on exertion) Status: Acute (3) History of palpitations Status: Acute
[2018-03-30] MEDS: MIRALAX POWDER (1 DOSE 17 G) PO SCH (20:17)
[2018-03-31 05:19] LABS: BASOPHILS # (AUTO) 0.1 X10^3/uL (0.0-0.1); BASOPHILS % (AUTO) 0.5 % (0.2-1.0); EOSINOPHILS # (AUTO) 0.1 x10^3/uL (0.0-0.2); EOSINOPHILS % (AUTO) 1.4 % (0.9-2.9); HEMATOCRIT 28.2 % (36.0-47.0); HEMOGLOBIN 8.8 g/dL (12.0-16.0); LYMPHOCYTES # (AUTO) 3.3 X10^3/uL (1.3-2.9); LYMPHOCYTES % (AUTO) 32.3 % (21.0-51.0); MEAN CORPUSCULAR HEMOGLOBIN 24.2 pg (27.0-34.0); MEAN CORPUSCULAR HGB CONC 31.3 g/dL (33.0-35.0); MEAN CORPUSCULAR VOLUME 77.2 fL (80.0-100.0); MEAN PLATELET VOLUME 8.7 fL (7.4-11.0); MONOCYTES # (AUTO) 0.9 x10^3/uL (0.3-0.8); MONOCYTES % (AUTO) 8.8 % (0.0-13.0); NEUTROPHILS # (AUTO) 5.8 x10^3/uL (2.2-4.8); PLATELET COUNT 272 X10^3/uL (150.0-450.0); RED BLOOD COUNT 3.65 X10^6/uL (3.5-5.4); WHITE BLOOD COUNT 10.2 X10^3/uL (3.6-10.0)
[2018-03-31 05:29] LABS: ALANINE AMINOTRANSFERASE 16 Units/L (12-78); ALBUMIN 2.9 g/dL (3.4-5.0); ALKALINE PHOSPHATASE 83 Units/L (46-116); ASPARTATE AMINO TRANSFERASE 13 Units/L (15-37); BLOOD UREA NITROGEN 13 mg/dL (7-18); CALCIUM 8.5 mg/dL (8.5-10.1); CARBON DIOXIDE 23.6 mmol/L (21-32); CHLORIDE 105 mmol/L (98-107); COR CA(FOR HYPOALB) 9.4 mg/dL (8.5-10.1); CREATININE 0.66 mg/dL (0.55-1.02); SODIUM 139 mmol/L (136-145); TOTAL PROTEIN 6.9 g/dL (6.4-8.2); eGFR NON BLACK RACES > 60 (>60)
[2018-03-31 05:51] LABS: HYPOCHROMASIA SLIGHT; PLATELET MORPHOLOGY COMMENT NORMAL (NORMAL)
[2018-03-31] MEDS: SYNTHROID 100 mcg TAB PO SCH (06:03)
--- NOTE | 2018-03-31 07:17 | RAD ---
HISTORY: Abdominal pain, constipation Study: Flat and upright abdomen, PA chest Comparison: 03/29/2018, 09/15/2017 Findings: The heart is within normal limits in size. The kennedy are normal. The lungs are free of acute infiltrates. No pleural effusions are identified. The abdominal gas pattern is nonspecific and nonobstructive. A moderately large amount of stool is present indicating some element of constipation. No pneumoperitoneum is identified. No abnormal masses or abnormal calcifications are identified. IMPRESSION: Lungs clear Constipation Reported By:
[2018-03-31] MEDS ORDERED: DULCOLAX SUPPOSITORY 10 MG RECTAL ONE (08:47)
[2018-03-31] MEDS ORDERED: CHRONULAC PO ONE (08:48)
[2018-03-31] MEDS: PROzac PO SCH (08:49)
[2018-03-31] MEDS: HEMOCYTE-PLUS PO SCH (08:49)
[2018-03-31] MEDS: PROTONIX INJ 40 MG VIAL IVP SCH (08:50)
[2018-03-31] MEDS: MUCOMYST 20% 200 MG/ML NEB SCH (09:09)
[2018-03-31] MEDS: Atrovent NEB TX 0.02% NEB SCH ×2 (09:09→12:12)
[2018-03-31] MEDS: ZITHROMAX INJ 500 MG VIAL 500 MG in D5W 250 ML IV 250 ML IV SCH (09:15)
[2018-03-31] MEDS: ROCEPHIN VIAL 1 GRAM IVP SCH (09:16)
[2018-03-31 12:32] VITALS: BP 84/53
== END 2018-03-31 13:40 | disposition home or self-care (01) | DRG 195 ==
LOC: MED/SURG → OBSVTOIN 14:48
PROVIDERS: ADMIT Internal Medicine; ATTEND Internal Medicine
DX: F41.8 Other specified anxiety disorders; R07.89 Other chest pain; K21.9 Gastro-esophageal reflux disease without esophagitis; R53.1 Weakness; R51 Headache; K59.09 Other constipation; R06.02 Shortness of breath; J18.8 Other pneumonia, unspecified organism
CPT/HCPCS: 36415; 71010; 71020; 71045; 71046; 71275; 74022; 80053; 81001; 82270; 82550; 82553; 82607; 82728; 82746; 83540; 84439; 84466; 84481; 84484; 85025; 85378; 87040; 93005; 94640; 94669; 94760; A4222; C9113; J0456; J0696; J1756; J3490; J7040; J7050; J7060; J7644